=== PATIENT | male | born 1970 | race African-American/Black ===

== ENCOUNTER 2018-06-11 23:30 | Emergency (ER) | payer MEDICAID ==
[~2018-06-11] VITALS: Ht 170.2 cm; Wt 74.1 kg
[~2018-06-11 23:30] MED LIST: BENZ1TAB10 PO; BUSP15 PO; HYDR25TA PO; LISI-662 PO; LITH300C3 PO; LURA40 PO; OLAN10TA3 PO; PHENY100 PO
[2018-06-11] MEDS ORDERED: CLON.3 PO (23:42)
[2018-06-11 23:48] LABS: BASOPHILS % (AUTO) 1.1 % (0.0-2.0); EOSINOPHILS % (AUTO) 2.4 % (1.0-6.0); HEMATOCRIT 42.9 % (41-53); HEMOGLOBIN 14.6 g/dL (13.5-17.5); LYMPHOCYTES # (AUTO) 1.5 K/uL (1.0-4.8); LYMPHOCYTES % (AUTO) 28.2 % (22.0-44.0); MEAN CORPUSCULAR HEMOGLOBIN 30.8 pg (26.0-34.0); MEAN CORPUSCULAR HGB CONC 33.9 G/dL (31.0-37.0); MEAN CORPUSCULAR VOLUME 91 fL (80-100); MONOCYTES # (AUTO) 0.3 K/uL (0.1-1.0); MONOCYTES % (AUTO) 6.3 % (2.0-9.0); NEUTROPHILS # (AUTO) 3.3 K/uL (1.8-7.7); PLATELET COUNT (AUTO) 233 K/uL (150-450); RED BLOOD CELL COUNT(AUTO) 4.73 MIL/uL (4.50-5.90); RED CELL DISTRIBUTION WIDTH 15.1 % (11.5-14.5)
[2018-06-11 23:58] LABS: ANION GAP 8 mmol/L (8-16); CALCIUM, TOTAL 9.5 mg/dL (8.8-10.5); CARBON DIOXIDE 29 mmol/L (22-29); CHLORIDE 101 mmol/L (98-107); CREATININE 1.12 mg/dL (0.60-1.30); GLOMERULAR FILTR. RATE CALC > 60 mL/min (>60); GLUCOSE,RANDOM 123 mg/dL (70-110); SODIUM SERUM 138 mmol/L (136-145); UREA NITROGEN, BLOOD 8 mg/dL (7-18)
[2018-06-12 00:05] LABS: ALANINE AMINOTRANSFERASE 16 U/L (12-78); ALBUMIN 4.2 g/dL (3.4-5.0); ALKALINE PHOSPHATASE 75 U/L (46-116); ASPARTATE AMINOTRANSFERASE 17 U/L (15-37); BILIRUBIN,TOTAL 0.3 mg/dL (0.1-1.0); TOTAL PROTEIN, SERUM 8.2 g/dL (6.4-8.2)
[2018-06-12 00:08] LABS: PHENYTOIN (DILANTIN) < 0.5 mcg/mL (10.0-20.0)
[2018-06-12 00:17] LABS: LITHIUM < 0.20 mmol/L (0.60-1.20)
[2018-06-12] MEDS: HALOPERIDOL 5 MG TABLET PO ONE (00:32)
[2018-06-12] MEDS: LORazepam 2 MG TABLET PO ONE (00:32)
[2018-06-12] MEDS: DiphenhydrAMINE HCL 25 MG CAPSULE PO ONE (00:35)
[2018-06-12 00:58] LABS: AMPHET/METH SCREEN,URINE POSITIVE (NEGATIVE); BARBITURATE SCREEN, URINE NEGATIVE (NEGATIVE); BENZODIAZEPINES SCREEN,URINE NEGATIVE (NEGATIVE); CANNABINOID SCREEN,URINE POSITIVE (NEGATIVE); COCAINE SCREEN,URINE NEGATIVE (NEGATIVE); METHADONE SCREEN, URINE NEGATIVE (NEGATIVE); OPIATE SCREEN,URINE NEGATIVE (NEGATIVE)
[2018-06-12 00:59] LABS: PHENCYCLIDINE SCREEN,URINE NEGATIVE (NEGATIVE)
[2018-06-12] MEDS: CloNIDine HCL 0.2 MG TABLET PO ONE (01:38)
[2018-06-12 02:59] VITALS: BP 163/135
== END 2018-06-12 03:04 | disposition home or self-care (01) ==
LOC: EMS 23:31
DX: F41.9 Anxiety disorder, unspecified (principal); F31.9 Bipolar disorder, unspecified; I10 Essential (primary) hypertension; F20.9 Schizophrenia, unspecified; F17.210 Nicotine dependence, cigarettes, uncomplicated; F12.90 Cannabis use, unspecified, uncomplicated; F15.90 Other stimulant use, unspecified, uncomplicated; Z79.4 Long term (current) use of insulin; Z88.8 Allergy status to other drugs, medicaments and biological substances
CPT/HCPCS: 36415; 80053; 80178; 80185; 80307; 84484; 85025; 99284; G0480

== ENCOUNTER 2018-07-31 23:19 | Emergency (ER) | payer MEDICAID ==
[~2018-07-31] VITALS: Ht 170.2 cm; Wt 86.0 kg
[~2018-07-31 23:19] MED LIST changes: +CLON.3 PO
[2018-07-31 23:57] LABS: EOSINOPHILS % (AUTO) 1.1 % (1.0-6.0); HEMATOCRIT 45.3 % (41-53); HEMOGLOBIN 15.3 g/dL (13.5-17.5); LYMPHOCYTES # (AUTO) 2.1 K/uL (1.0-4.8); LYMPHOCYTES % (AUTO) 31.1 % (22.0-44.0); MEAN CORPUSCULAR HEMOGLOBIN 31.3 pg (26.0-34.0); MEAN CORPUSCULAR HGB CONC 33.9 G/dL (31.0-37.0); MEAN CORPUSCULAR VOLUME 92 fL (80-100); MONOCYTES # (AUTO) 0.6 K/uL (0.1-1.0); MONOCYTES % (AUTO) 8.9 % (2.0-9.0); NEUTROPHILS % (AUTO) 57.9 % (40.0-70.0); PLATELET COUNT (AUTO) 217 K/uL (150-450); RED BLOOD CELL COUNT(AUTO) 4.91 MIL/uL (4.50-5.90); RED CELL DISTRIBUTION WIDTH 15.5 % (11.5-14.5)
[2018-08-01] MEDS ORDERED: PALI39DI IM (00:02)
[2018-08-01 00:10] LABS: ANION GAP 10 mmol/L (8-16); CARBON DIOXIDE 28 mmol/L (22-29); CHLORIDE 99 mmol/L (98-107); CREATININE 1.13 mg/dL (0.60-1.30); GLOMERULAR FILTR. RATE CALC > 60 mL/min (>60); GLUCOSE,RANDOM 111 mg/dL (70-110); POTASSIUM 4.2 mmol/L (3.5-5.1); SODIUM SERUM 137 mmol/L (136-145); UREA NITROGEN, BLOOD 11 mg/dL (7-18)
[2018-08-01 00:16] LABS: ALANINE AMINOTRANSFERASE 16 U/L (12-78); ALBUMIN 4.5 g/dL (3.4-5.0); ALKALINE PHOSPHATASE 82 U/L (46-116); ASPARTATE AMINOTRANSFERASE 28 U/L (15-37); BILIRUBIN,TOTAL 0.6 mg/dL (0.1-1.0); TOTAL PROTEIN, SERUM 8.7 g/dL (6.4-8.2)
[2018-08-01 00:22] LABS: AMPHET/METH SCREEN,URINE POSITIVE (NEGATIVE); BARBITURATE SCREEN, URINE NEGATIVE (NEGATIVE); BENZODIAZEPINES SCREEN,URINE NEGATIVE (NEGATIVE); CANNABINOID SCREEN,URINE NEGATIVE (NEGATIVE); COCAINE SCREEN,URINE NEGATIVE (NEGATIVE); METHADONE SCREEN, URINE NEGATIVE (NEGATIVE); OPIATE SCREEN,URINE NEGATIVE (NEGATIVE); PHENCYCLIDINE SCREEN,URINE NEGATIVE (NEGATIVE)
[2018-08-01] MEDS ORDERED: LORazepam 2 MG TABLET PO ONE (00:45)
[2018-08-01] MEDS ORDERED: HALOPERIDOL 5 MG TABLET PO ONE (00:45)
[2018-08-01] MEDS ORDERED: CloNIDine HCL 0.2 MG TABLET PO ONE (01:30)
[2018-08-01] MEDS ORDERED: AmLODIPine BESYLATE 5 MG TABLET PO ONE (02:30)
[2018-08-01 02:53] VITALS: BP 183/87
== END 2018-08-01 03:09 | disposition home or self-care (01) ==
LOC: EMS 23:20
DX: F20.9 Schizophrenia, unspecified (principal); F31.9 Bipolar disorder, unspecified; F41.9 Anxiety disorder, unspecified; I10 Essential (primary) hypertension; F15.90 Other stimulant use, unspecified, uncomplicated; F17.210 Nicotine dependence, cigarettes, uncomplicated; Z88.8 Allergy status to other drugs, medicaments and biological substances
CPT/HCPCS: 36415; 80053; 80307; 85025; 99285; G0480

== ENCOUNTER 2020-01-20 20:32 | Emergency (ER) | payer SELFPAY ==
[~2020-01-20] VITALS: Ht 170.2 cm; Wt 90.5 kg
[~2020-01-20 20:32] MED LIST changes: -BENZ1TAB10 PO; -CLON.3 PO; -HYDR25TA PO; -LISI-662 PO; -LITH300C3 PO; -LURA40 PO; +PALI39DI IM
[2020-01-20 20:49] VITALS: BP 166/90
== END 2020-01-20 21:09 | disposition left against medical advice (07) ==
LOC: EMS 20:33
DX: F20.9 Schizophrenia, unspecified (principal); F31.9 Bipolar disorder, unspecified; I10 Essential (primary) hypertension; F19.90 Other psychoactive substance use, unspecified, uncomplicated; Z88.0 Allergy status to penicillin

== ENCOUNTER 2020-01-20 23:55 | Inpatient (IN) | payer SELFPAY ==
[~2020-01-20] VITALS: Ht 170.2 cm; Wt 85.4 kg
[2020-01-21] MEDS ORDERED: LORazepam 2 MG TABLET PO ONE (01:00)
[2020-01-21] MEDS ORDERED: HALOPERIDOL LACTATE 5 MG/ML VIAL IM ONE (01:15)
[2020-01-21] MEDS ORDERED: LORazepam 2 MG/ML VIAL IM ONE (01:15)
[2020-01-21] MEDS ORDERED: DiphenhydrAMINE HCL 50 MG/ML VIAL IM ONE (01:15)
[2020-01-21] MEDS ORDERED: ZOLPIDEM TARTRATE 10 MG TABLET PO PRN (02:00)
[2020-01-21] MEDS ORDERED: INFLUENZA VIRUS VACCINE QVS 2019-20 (3YR+)/PF 60 MCG/0.5 ML SYRINGE IM ONE (06:00)
[2020-01-21] MEDS ORDERED: PNEUMOCOCCAL VACCINE POLYVALENT 0.5 ML VIAL [PPSV23] IM ONE (06:00)
[2020-01-21 09:56] VITALS: BP 137/98
[2020-01-21 16:00] VITALS: BP 116/72
[2020-01-21] MEDS: PHENYTOIN SODIUM 100 MG ER CAPSULE PO SCH (16:58)
[2020-01-21] MEDS: OLANZapine 7.5 MG TABLET PO SCH (20:25)
[2020-01-22 08:04] LABS: CHOL/HDL RATIO 2.9 (4.2-7.3)
[2020-01-22] MEDS: BusPIRone HCL 15 MG TABLET PO SCH ×2 (08:37→17:00)
[2020-01-22] MEDS: PHENYTOIN SODIUM 100 MG ER CAPSULE PO SCH (08:37)
[2020-01-22] MEDS: DIVALPROEX SODIUM 500 MG DR TABLET PO SCH ×2 (08:37→17:00)
[2020-01-22 08:38] VITALS: BP 145/97
[2020-01-22] MEDS ORDERED: HALOPERIDOL LACTATE 5 MG/ML VIAL ONE (14:35)
[2020-01-22] MEDS ORDERED: DiphenhydrAMINE HCL 50 MG/ML VIAL ONE (14:35)
[2020-01-22] MEDS: HALOPERIDOL 5 MG TABLET PO PRN (14:40)
[2020-01-22] MEDS: LORazepam 2 MG TABLET PO PRN (14:40)
[2020-01-22] MEDS ORDERED: HALOPERIDOL LACTATE 5 MG/ML VIAL IM ONE (14:45)
[2020-01-22] MEDS ORDERED: LORazepam 2 MG/ML VIAL IM ONE (14:45)
[2020-01-22] MEDS ORDERED: DiphenhydrAMINE HCL 50 MG/ML VIAL IM ONE (14:45)
[2020-01-22 16:22] VITALS: BP 136/91
[2020-01-22] MEDS: OLANZapine 7.5 MG TABLET PO SCH (20:19)
[2020-01-23] MEDS: DIVALPROEX SODIUM 500 MG DR TABLET PO SCH ×2 (08:07→16:15)
[2020-01-23] MEDS: BusPIRone HCL 15 MG TABLET PO SCH ×2 (08:07→16:15)
[2020-01-23] MEDS: PHENYTOIN SODIUM 100 MG ER CAPSULE PO SCH (08:08)
[2020-01-23] MEDS: LORazepam 2 MG TABLET PO PRN (11:12)
[2020-01-23] MEDS: HALOPERIDOL 5 MG TABLET PO PRN (11:12)
[2020-01-23] MEDS ORDERED: HALOPERIDOL LACTATE 5 MG/ML VIAL ONE (11:33)
[2020-01-23] MEDS ORDERED: LORazepam 2 MG/ML VIAL ONE (11:33)
[2020-01-23] MEDS ORDERED: DiphenhydrAMINE HCL 50 MG/ML VIAL ONE (11:34)
[2020-01-23] MEDS ORDERED: HALOPERIDOL LACTATE 5 MG/ML VIAL IM ONE ×3 (11:45→17:45)
[2020-01-23] MEDS ORDERED: DiphenhydrAMINE HCL 50 MG/ML VIAL IM ONE (11:45)
[2020-01-23] MEDS ORDERED: LORazepam 2 MG/ML VIAL IM ONE ×3 (11:45→17:45)
[2020-01-23] MEDS ORDERED: OLAN7.5T2 PO (11:59)
[2020-01-23] MEDS: OLANZapine 7.5 MG TABLET PO SCH (21:29)
[2020-01-24] MEDS: LORazepam 2 MG TABLET PO PRN (00:04)
[2020-01-24] MEDS: PHENYTOIN SODIUM 100 MG ER CAPSULE PO SCH (09:00)
[2020-01-24] MEDS ORDERED: LORazepam 2 MG/ML VIAL IM ONE ×4 (09:15→18:15)
[2020-01-24] MEDS ORDERED: LORazepam 2 MG/ML VIAL ONE (09:15)
[2020-01-24] MEDS ORDERED: HALOPERIDOL LACTATE 5 MG/ML VIAL ONE (09:15)
[2020-01-24] MEDS ORDERED: DiphenhydrAMINE HCL 50 MG/ML VIAL IM ONE ×4 (09:15→18:15)
[2020-01-24] MEDS ORDERED: DiphenhydrAMINE HCL 50 MG/ML VIAL ONE (09:15)
[2020-01-24] MEDS ORDERED: HALOPERIDOL LACTATE 5 MG/ML VIAL IM ONE ×4 (09:15→18:15)
[2020-01-24] MEDS: BusPIRone HCL 15 MG TABLET PO SCH ×2 (13:55→18:27)
[2020-01-24] MEDS: DIVALPROEX SODIUM 500 MG DR TABLET PO SCH ×2 (13:55→17:00)
[2020-01-24] MEDS: OLANZapine 7.5 MG TABLET PO SCH (20:42)
[2020-01-25] MEDS: BusPIRone HCL 15 MG TABLET PO SCH ×2 (08:23→16:20)
[2020-01-25] MEDS: LORazepam 2 MG TABLET PO PRN ×2 (08:27→14:24)
[2020-01-25] MEDS: DIVALPROEX SODIUM 500 MG DR TABLET PO SCH ×2 (08:28→16:20)
[2020-01-25] MEDS: PHENYTOIN SODIUM 100 MG ER CAPSULE PO SCH (08:28)
[2020-01-25] MEDS ORDERED: VALP250C48 PO (16:20)
== END 2020-01-25 18:15 | disposition home or self-care (01) | DRG 885 ==
LOC: EMS 23:56 → 3EC 01-21 03:36
PROVIDERS: ADMIT Psychiatry & Neurology Psychiatry; ATTEND Psychiatry & Neurology Psychiatry
DX: F20.0 Paranoid schizophrenia (principal); I10 Essential (primary) hypertension; F17.210 Nicotine dependence, cigarettes, uncomplicated; G40.909 Epilepsy, unspecified, not intractable, without status epilepticus; J44.9 Chronic obstructive pulmonary disease, unspecified; G47.00 Insomnia, unspecified; K59.00 Constipation, unspecified; Z88.8 Allergy status to other drugs, medicaments and biological substances
CPT/HCPCS: 99291; J1200; J1630; J2060

== ENCOUNTER 2020-02-05 00:50 | Emergency (ER) | payer SELFPAY ==
[~2020-02-05] VITALS: Ht 170.2 cm; Wt 84.1 kg
[~2020-02-05 00:50] MED LIST changes: -OLAN10TA3 PO; +OLAN7.5T2 PO; -PALI39DI IM; +VALP250C48 PO
[2020-02-05 00:53] VITALS: BP 195/118
[2020-02-05] MEDS ORDERED: BUSP15 PO (01:22)
[2020-02-05] MEDS ORDERED: OLAN10TA3 PO (01:22)
== END 2020-02-05 03:15 | disposition left against medical advice (07) ==
LOC: EMS 00:52
DX: Z00.8 Encounter for other general examination (principal); Z53.21 Procedure and treatment not carried out due to patient leaving prior to being seen by health care provider

== ENCOUNTER 2021-04-30 23:12 | Emergency (ER) | payer MEDICAID ==
[~2021-04-30 23:12] MED LIST changes: +OLAN10TA74 PO; -OLAN7.5T2 PO; -PHENY100 PO; -VALP250C48 PO
== END 2021-05-01 00:06 | disposition left against medical advice (07) ==
LOC: EMS 23:13
DX: Z00.00 Encounter for general adult medical examination without abnormal findings (principal); Z53.21 Procedure and treatment not carried out due to patient leaving prior to being seen by health care provider

== ENCOUNTER 2021-05-01 00:25 | Inpatient (IN) | payer MEDICAID ==
[~2021-05-01] VITALS: Ht 172.7 cm; Wt 103.1 kg
[2021-05-01] MEDS ORDERED: HALOPERIDOL LACTATE 5 MG/ML VIAL IM ONE (00:45)
[2021-05-01] MEDS ORDERED: LORazepam 2 MG/ML VIAL IM ONE (00:45)
[2021-05-01] MEDS ORDERED: DiphenhydrAMINE HCL 50 MG/ML VIAL IM ONE (00:45)
[2021-05-01 01:16] LABS: BASOPHILS % (AUTO) 0.7 % (0.0-2.0); EOSINOPHILS % (AUTO) 0.5 % (1.0-6.0); HEMATOCRIT 35.6 % (41-53); HEMOGLOBIN 11.7 g/dL (13.5-17.5); LYMPHOCYTES # (AUTO) 1.6 K/uL (1.0-4.8); LYMPHOCYTES % (AUTO) 17.7 % (22.0-44.0); MEAN CORPUSCULAR HEMOGLOBIN 30.5 pg (26.0-34.0); MEAN CORPUSCULAR VOLUME 93 fL (80-100); MONOCYTES # (AUTO) 0.9 K/uL (0.1-1.0); MONOCYTES % (AUTO) 10.4 % (2.0-9.0); NEUTROPHILS # (AUTO) 6.4 K/uL (1.8-7.7); NEUTROPHILS % (AUTO) 70.7 % (40.0-70.0); PLATELET COUNT (AUTO) 241 K/uL (150-450); RED BLOOD CELL COUNT(AUTO) 3.85 MIL/uL (4.50-5.90); RED CELL DISTRIBUTION WIDTH 14.7 % (11.5-14.5)
[2021-05-01 01:26] LABS: ANION GAP 13 mmol/L (8-16); CARBON DIOXIDE 25 mmol/L (22-29); CHLORIDE 101 mmol/L (98-107); CREATININE 1.07 mg/dL (0.60-1.30); GLOMERULAR FILTR. RATE CALC > 60 mL/min (>60); GLUCOSE,RANDOM 106 mg/dL (70-110); POTASSIUM 3.4 mmol/L (3.5-5.1); SODIUM SERUM 139 mmol/L (136-145); UREA NITROGEN, BLOOD 13 mg/dL (7-18)
[2021-05-01 01:32] LABS: ALANINE AMINOTRANSFERASE 50 U/L (12-78); ALBUMIN 3.7 g/dL (3.4-5.0); ALKALINE PHOSPHATASE 72 U/L (46-116); ASPARTATE AMINOTRANSFERASE 57 U/L (15-37); BILIRUBIN,TOTAL 0.5 mg/dL (0.1-1.0); TOTAL PROTEIN, SERUM 7.5 g/dL (6.4-8.2); VALPROIC ACID < 3 mcg/mL (50-100)
[2021-05-01 01:42] LABS: COVID AG,FIA SOURCE NASOPHARYNGEAL
[2021-05-01 02:45] LABS: APPEARANCE,URINE CLEAR (CLEAR); GLUCOSE, URINE (UA) NEGATIVE (NEGATIVE); KETONES,URINE 40 mg/dL (NEGATIVE); LEUKOCYTE ESTERASE ,URINE NEGATIVE (NEGATIVE); NITRATE,URINE NEGATIVE (NEGATIVE); OCCULT BLOOD,URINE NEGATIVE (NEGATIVE); PROTEIN,URINE POS 1+ (NEGATIVE); UROBILINOGEN,URINE 0.2 mg/dL (<=1.0)
[2021-05-01 02:47] LABS: BILIRUBIN,URINE PRELIM. POSITIVE (NEGATIVE)
[2021-05-01 02:49] LABS: BACTERIA,URINE Rare /HPF (None Seen); RBC,URINE 0-2 /HPF (0-2); WBC,URINE 0-2 /HPF (0-5)
[2021-05-01 02:50] LABS: SQUAMOUS EPITHELIAL CELL,UR Rare /LPF (None Seen)
[2021-05-01 02:51] LABS: AMPHET/METH SCREEN,URINE POSITIVE (NEGATIVE); BARBITURATE SCREEN, URINE NEGATIVE (NEGATIVE); BENZODIAZEPINES SCREEN,URINE NEGATIVE (NEGATIVE); CANNABINOID SCREEN,URINE POSITIVE (NEGATIVE); COCAINE SCREEN,URINE NEGATIVE (NEGATIVE); METHADONE SCREEN, URINE NEGATIVE (NEGATIVE); OPIATE SCREEN,URINE NEGATIVE (NEGATIVE)
[2021-05-01 02:52] LABS: PHENCYCLIDINE SCREEN,URINE NEGATIVE (NEGATIVE)
[2021-05-01 11:04] VITALS: BP 158/88
[2021-05-01] MEDS: HYDROCHLOROTHIAZIDE 25 MG TABLET PO SCH (12:58)
[2021-05-01] MEDS: LISINOPRIL 20 MG TABLET PO SCH (12:58)
[2021-05-01 13:18] LABS: GLUCOMETER DEV NAME(LOC) 3E.C; GLUCOSE,POINT OF CARE 97 MG/DL (70-110)
[2021-05-01 16:06] VITALS: BP 120/74
[2021-05-01] MEDS: LevETIRAcetam 500 MG TABLET PO SCH (16:18)
[2021-05-01] MEDS: METOPROLOL SUCCINATE 25 MG ER TABLET PO SCH (16:18)
[2021-05-01] MEDS: OLANZapine 10 MG TABLET PO SCH (20:16)
[2021-05-01] MEDS: BusPIRone HCL 15 MG TABLET PO SCH (20:16)
[2021-05-02 07:23] LABS: CHOL/HDL RATIO 3.7 (4.2-7.3)
[2021-05-02 08:42] VITALS: BP 108/69
[2021-05-02] MEDS: METOPROLOL SUCCINATE 25 MG ER TABLET PO SCH ×2 (10:30→16:37)
[2021-05-02] MEDS: BusPIRone HCL 15 MG TABLET PO SCH ×2 (10:31→16:37)
[2021-05-02] MEDS: HYDROCHLOROTHIAZIDE 25 MG TABLET PO SCH (10:31)
[2021-05-02] MEDS: LISINOPRIL 20 MG TABLET PO SCH (10:32)
[2021-05-02] MEDS: LevETIRAcetam 500 MG TABLET PO SCH ×2 (10:32→16:37)
[2021-05-02 16:36] VITALS: BP 104/69
[2021-05-02] MEDS: OLANZapine 10 MG TABLET PO SCH (20:17)
[2021-05-03 08:36] VITALS: BP 98/58
[2021-05-03] MEDS: METOPROLOL SUCCINATE 25 MG ER TABLET PO SCH ×2 (10:04→16:54)
[2021-05-03] MEDS: LevETIRAcetam 500 MG TABLET PO SCH ×2 (10:06→16:53)
[2021-05-03] MEDS: LISINOPRIL 20 MG TABLET PO SCH (10:06)
[2021-05-03] MEDS: BusPIRone HCL 15 MG TABLET PO SCH ×2 (10:06→16:54)
[2021-05-03] MEDS: HYDROCHLOROTHIAZIDE 25 MG TABLET PO SCH (10:06)
[2021-05-03] MEDS: LORazepam 2 MG TABLET PO PRN (15:00)
[2021-05-03] MEDS: HALOPERIDOL 5 MG TABLET PO PRN (15:01)
[2021-05-03 16:19] VITALS: BP 137/98
[2021-05-03] MEDS: OLANZapine 10 MG TABLET PO SCH (20:47)
[2021-05-04 08:00] VITALS: BP 104/57
[2021-05-04] MEDS: HYDROCHLOROTHIAZIDE 25 MG TABLET PO SCH (08:29)
[2021-05-04] MEDS: BusPIRone HCL 15 MG TABLET PO SCH ×2 (08:30→16:07)
[2021-05-04] MEDS: LevETIRAcetam 500 MG TABLET PO SCH ×2 (08:30→16:07)
[2021-05-04] MEDS: LISINOPRIL 20 MG TABLET PO SCH (08:30)
[2021-05-04] MEDS: METOPROLOL SUCCINATE 25 MG ER TABLET PO SCH ×2 (08:31→16:10)
[2021-05-04] MEDS: HALOPERIDOL 5 MG TABLET PO PRN (15:47)
[2021-05-04] MEDS: LORazepam 2 MG TABLET PO PRN (15:47)
[2021-05-04 16:15] VITALS: BP 117/81
[2021-05-04] MEDS: OLANZapine 10 MG TABLET PO SCH (20:18)
[2021-05-05] MEDS: HALOPERIDOL 5 MG TABLET PO PRN ×2 (02:25→11:37)
[2021-05-05] MEDS: ZOLPIDEM TARTRATE 10 MG TABLET PO PRN ×2 (02:25→23:32)
[2021-05-05 08:00] VITALS: BP 106/68
[2021-05-05] MEDS: METOPROLOL SUCCINATE 25 MG ER TABLET PO SCH ×2 (09:13→16:01)
[2021-05-05] MEDS: HYDROCHLOROTHIAZIDE 25 MG TABLET PO SCH (09:24)
[2021-05-05] MEDS: LISINOPRIL 20 MG TABLET PO SCH (09:24)
[2021-05-05] MEDS: BusPIRone HCL 15 MG TABLET PO SCH ×2 (09:24→16:01)
[2021-05-05] MEDS: LevETIRAcetam 500 MG TABLET PO SCH ×2 (09:24→16:01)
[2021-05-05] MEDS: LORazepam 2 MG TABLET PO PRN ×3 (11:37→23:32)
[2021-05-05] MEDS ORDERED: HALOPERIDOL LACTATE 5 MG/ML VIAL ONE (15:38)
[2021-05-05] MEDS ORDERED: LORazepam 2 MG/ML VIAL ONE (15:38)
[2021-05-05] MEDS ORDERED: LORazepam 2 MG/ML VIAL IM ONE ×2 (15:45→21:00)
[2021-05-05] MEDS ORDERED: DiphenhydrAMINE HCL 50 MG/ML VIAL IM ONE ×2 (15:45→21:00)
[2021-05-05] MEDS ORDERED: HALOPERIDOL LACTATE 5 MG/ML VIAL IM ONE (15:45)
[2021-05-05 16:00] VITALS: BP 111/73
[2021-05-05] MEDS: OLANZapine 10 MG TABLET PO SCH (20:38)
[2021-05-05] MEDS ORDERED: ChlorproMAZINE HCL 50 MG/2 ML AMP ONE (20:55)
[2021-05-05] MEDS ORDERED: ChlorproMAZINE HCL 50 MG/2 ML AMP IM ONE (21:00)
[2021-05-06] MEDS: HALOPERIDOL 5 MG TABLET PO PRN ×3 (00:22→16:55)
[2021-05-06] MEDS ORDERED: LORazepam 2 MG/ML VIAL IM ONE ×2 (06:15→17:15)
[2021-05-06] MEDS ORDERED: DiphenhydrAMINE HCL 50 MG/ML VIAL IM ONE ×2 (06:15→17:15)
[2021-05-06] MEDS ORDERED: HALOPERIDOL LACTATE 5 MG/ML VIAL IM ONE ×2 (06:15→17:15)
[2021-05-06] MEDS ORDERED: HALOPERIDOL LACTATE 5 MG/ML VIAL ONE (06:19)
[2021-05-06] MEDS: BusPIRone HCL 15 MG TABLET PO SCH ×2 (08:07→16:56)
[2021-05-06] MEDS: LevETIRAcetam 500 MG TABLET PO SCH ×2 (08:07→16:56)
[2021-05-06] MEDS: LISINOPRIL 20 MG TABLET PO SCH (08:07)
[2021-05-06] MEDS: HYDROCHLOROTHIAZIDE 25 MG TABLET PO SCH (08:07)
[2021-05-06] MEDS: METOPROLOL SUCCINATE 25 MG ER TABLET PO SCH ×2 (08:07→16:56)
[2021-05-06] MEDS: LORazepam 2 MG TABLET PO PRN ×2 (11:44→16:55)
[2021-05-06] MEDS: OLANZapine 10 MG TABLET PO SCH (20:27)
[2021-05-07] MEDS: BusPIRone HCL 15 MG TABLET PO SCH ×2 (08:25→17:46)
[2021-05-07] MEDS: LevETIRAcetam 500 MG TABLET PO SCH ×2 (08:25→17:46)
[2021-05-07] MEDS: LISINOPRIL 20 MG TABLET PO SCH (08:25)
[2021-05-07] MEDS: HYDROCHLOROTHIAZIDE 25 MG TABLET PO SCH (08:25)
[2021-05-07] MEDS: HALOPERIDOL 5 MG TABLET PO PRN ×2 (08:25→19:09)
[2021-05-07] MEDS: LORazepam 2 MG TABLET PO PRN ×2 (08:25→19:18)
[2021-05-07] MEDS: METOPROLOL SUCCINATE 25 MG ER TABLET PO SCH ×2 (08:26→17:46)
[2021-05-07 09:06] VITALS: BP 100/72
[2021-05-07] MEDS: DIVALPROEX SODIUM 500 MG DR TABLET PO SCH ×2 (09:48→17:46)
[2021-05-07] MEDS ORDERED: LORazepam 2 MG/ML VIAL ONE (15:19)
[2021-05-07] MEDS ORDERED: ChlorproMAZINE HCL 50 MG/2 ML AMP ONE (15:19)
[2021-05-07] MEDS ORDERED: DiphenhydrAMINE HCL 50 MG/ML VIAL ONE (15:19)
[2021-05-07] MEDS ORDERED: LORazepam 2 MG/ML VIAL IM ONE ×2 (15:30→23:45)
[2021-05-07] MEDS ORDERED: ChlorproMAZINE HCL 50 MG/2 ML AMP IM ONE ×2 (15:30→23:45)
[2021-05-07] MEDS ORDERED: DiphenhydrAMINE HCL 50 MG/ML VIAL IM ONE ×2 (15:30→23:45)
[2021-05-07] MEDS: ZOLPIDEM TARTRATE 10 MG TABLET PO PRN ×2 (19:25→20:34)
[2021-05-07] MEDS: OLANZapine 10 MG TABLET PO SCH (20:09)
[2021-05-08] MEDS: LevETIRAcetam 500 MG TABLET PO SCH ×2 (08:44→16:50)
[2021-05-08] MEDS: LORazepam 2 MG TABLET PO PRN (08:44)
[2021-05-08] MEDS: METOPROLOL SUCCINATE 25 MG ER TABLET PO SCH ×2 (08:44→16:50)
[2021-05-08] MEDS: DIVALPROEX SODIUM 500 MG DR TABLET PO SCH ×2 (08:44→16:50)
[2021-05-08] MEDS: HALOPERIDOL 5 MG TABLET PO PRN (08:44)
[2021-05-08] MEDS: BusPIRone HCL 15 MG TABLET PO SCH ×2 (08:45→16:50)
[2021-05-08] MEDS: HYDROCHLOROTHIAZIDE 25 MG TABLET PO SCH (08:45)
[2021-05-08] MEDS: LISINOPRIL 20 MG TABLET PO SCH (08:45)
[2021-05-08] MEDS: OLANZapine 10 MG TABLET PO SCH (21:43)
[2021-05-09] MEDS: HALOPERIDOL 5 MG TABLET PO PRN ×4 (00:03→18:51)
[2021-05-09] MEDS: LORazepam 2 MG TABLET PO PRN ×4 (00:04→18:51)
[2021-05-09] MEDS: ZOLPIDEM TARTRATE 10 MG TABLET PO PRN ×2 (01:34→20:18)
[2021-05-09] MEDS: LevETIRAcetam 500 MG TABLET PO SCH ×2 (07:23→18:49)
[2021-05-09] MEDS: MULTIVITAMINS WITH MINERALS, THERAPEUTIC TABLET PO SCH (07:23)
[2021-05-09] MEDS: LISINOPRIL 20 MG TABLET PO SCH (07:24)
[2021-05-09] MEDS: HYDROCHLOROTHIAZIDE 25 MG TABLET PO SCH (07:24)
[2021-05-09] MEDS: BusPIRone HCL 15 MG TABLET PO SCH ×2 (07:24→18:49)
[2021-05-09] MEDS: DIVALPROEX SODIUM 500 MG DR TABLET PO SCH ×2 (07:24→18:49)
[2021-05-09] MEDS: METOPROLOL SUCCINATE 25 MG ER TABLET PO SCH ×2 (07:24→18:49)
[2021-05-09 08:20] VITALS: BP 104/67
[2021-05-09] MEDS: OLANZapine 10 MG TABLET PO SCH (20:20)
[2021-05-10] MEDS: LORazepam 2 MG TABLET PO PRN ×2 (00:58→06:52)
[2021-05-10] MEDS: HALOPERIDOL 5 MG TABLET PO PRN ×2 (00:58→06:52)
[2021-05-10] MEDS: LevETIRAcetam 500 MG TABLET PO SCH ×2 (07:43→17:00)
[2021-05-10] MEDS: METOPROLOL SUCCINATE 25 MG ER TABLET PO SCH ×2 (07:43→17:00)
[2021-05-10] MEDS: MULTIVITAMINS WITH MINERALS, THERAPEUTIC TABLET PO SCH (07:43)
[2021-05-10] MEDS: LISINOPRIL 20 MG TABLET PO SCH (07:44)
[2021-05-10] MEDS: HYDROCHLOROTHIAZIDE 25 MG TABLET PO SCH (07:44)
[2021-05-10] MEDS: DIVALPROEX SODIUM 500 MG DR TABLET PO SCH ×2 (07:44→17:00)
[2021-05-10] MEDS: BusPIRone HCL 15 MG TABLET PO SCH ×2 (07:44→17:00)
[2021-05-10] MEDS ORDERED: LORazepam 2 MG/ML VIAL ONE (15:48)
[2021-05-10] MEDS ORDERED: ChlorproMAZINE HCL 50 MG/2 ML AMP ONE (15:49)
[2021-05-10] MEDS ORDERED: DiphenhydrAMINE HCL 50 MG/ML VIAL ONE (15:49)
[2021-05-10] MEDS ORDERED: ChlorproMAZINE HCL 50 MG/2 ML AMP IM ONE (15:50)
[2021-05-10] MEDS ORDERED: DiphenhydrAMINE HCL 50 MG/ML VIAL IM ONE ×2 (15:50→23:15)
[2021-05-10] MEDS ORDERED: LORazepam 2 MG/ML VIAL IM ONE ×3 (15:50→23:15)
[2021-05-10 16:00] VITALS: BP 121/80
[2021-05-10] MEDS ORDERED: ZIPRASIDONE MESYLATE 20 MG/VIAL IM ONE ×3 (18:51→23:15)
[2021-05-10] MEDS: OLANZapine 10 MG TABLET PO SCH (21:00)
[2021-05-10] MEDS ORDERED: NICOTINE 14 MG/24 HOUR PATCH TD PRN (23:15)
[2021-05-11] MEDS: BusPIRone HCL 15 MG TABLET PO SCH ×2 (08:52→16:16)
[2021-05-11] MEDS: MULTIVITAMINS WITH MINERALS, THERAPEUTIC TABLET PO SCH (08:52)
[2021-05-11] MEDS: HALOPERIDOL 5 MG TABLET PO PRN ×3 (08:52→19:07)
[2021-05-11] MEDS: LISINOPRIL 20 MG TABLET PO SCH (08:52)
[2021-05-11] MEDS: LORazepam 2 MG TABLET PO PRN ×2 (08:53→14:50)
[2021-05-11] MEDS: HYDROCHLOROTHIAZIDE 25 MG TABLET PO SCH (08:53)
[2021-05-11] MEDS: DIVALPROEX SODIUM 500 MG DR TABLET PO SCH ×2 (08:55→16:16)
[2021-05-11] MEDS: METOPROLOL SUCCINATE 25 MG ER TABLET PO SCH ×2 (08:56→17:57)
[2021-05-11] MEDS: LevETIRAcetam 500 MG TABLET PO SCH ×2 (08:57→16:16)
[2021-05-11] MEDS ORDERED: ZIPRASIDONE MESYLATE 20 MG/VIAL IM ONE ×2 (16:31→17:00)
[2021-05-11] MEDS ORDERED: LORazepam 2 MG/ML VIAL ONE (16:32)
[2021-05-11] MEDS ORDERED: DiphenhydrAMINE HCL 50 MG/ML VIAL ONE (16:33)
[2021-05-11] MEDS ORDERED: LORazepam 2 MG/ML VIAL IM ONE (17:00)
[2021-05-11] MEDS ORDERED: DiphenhydrAMINE HCL 50 MG/ML VIAL IM ONE (17:00)
[2021-05-11] MEDS: OLANZapine 10 MG TABLET PO SCH (21:17)
[2021-05-12] MEDS: ZOLPIDEM TARTRATE 10 MG TABLET PO PRN (02:39)
[2021-05-12] MEDS: LORazepam 2 MG TABLET PO PRN ×3 (02:39→13:31)
[2021-05-12] MEDS: HALOPERIDOL 5 MG TABLET PO PRN ×3 (03:45→13:31)
[2021-05-12] MEDS: HYDROCHLOROTHIAZIDE 25 MG TABLET PO SCH (07:52)
[2021-05-12] MEDS: MULTIVITAMINS WITH MINERALS, THERAPEUTIC TABLET PO SCH (07:52)
[2021-05-12] MEDS: LevETIRAcetam 500 MG TABLET PO SCH ×2 (07:52→16:55)
[2021-05-12] MEDS: BusPIRone HCL 15 MG TABLET PO SCH ×2 (07:52→16:54)
[2021-05-12] MEDS: DIVALPROEX SODIUM 500 MG DR TABLET PO SCH ×2 (07:52→16:55)
[2021-05-12] MEDS: LISINOPRIL 20 MG TABLET PO SCH (07:52)
[2021-05-12] MEDS: METOPROLOL SUCCINATE 25 MG ER TABLET PO SCH ×2 (07:53→16:56)
[2021-05-12 08:11] VITALS: BP 143/95
[2021-05-12] MEDS: ZIPRASIDONE HCL 40 MG CAPSULE PO SCH (16:55)
[2021-05-12] MEDS: OLANZapine 10 MG TABLET PO SCH (20:07)
[2021-05-13] MEDS: LORazepam 2 MG TABLET PO PRN ×3 (02:13→21:13)
[2021-05-13] MEDS: HALOPERIDOL 5 MG TABLET PO PRN ×3 (02:13→21:13)
[2021-05-13] MEDS: ZOLPIDEM TARTRATE 10 MG TABLET PO PRN ×2 (02:13→20:17)
[2021-05-13] MEDS: ZIPRASIDONE HCL 40 MG CAPSULE PO SCH ×2 (06:36→18:42)
[2021-05-13] MEDS: LISINOPRIL 20 MG TABLET PO SCH (09:30)
[2021-05-13] MEDS: DIVALPROEX SODIUM 500 MG DR TABLET PO SCH ×2 (09:30→18:43)
[2021-05-13] MEDS: LevETIRAcetam 500 MG TABLET PO SCH ×2 (09:31→18:43)
[2021-05-13] MEDS: BusPIRone HCL 15 MG TABLET PO SCH ×2 (09:31→18:43)
[2021-05-13] MEDS: METOPROLOL SUCCINATE 25 MG ER TABLET PO SCH ×2 (09:31→18:43)
[2021-05-13] MEDS: MULTIVITAMINS WITH MINERALS, THERAPEUTIC TABLET PO SCH (09:31)
[2021-05-13] MEDS: HYDROCHLOROTHIAZIDE 25 MG TABLET PO SCH (09:31)
[2021-05-13] MEDS: OLANZapine 10 MG TABLET PO SCH (20:17)
[2021-05-14] MEDS: HALOPERIDOL 5 MG TABLET PO PRN ×3 (05:04→20:22)
[2021-05-14] MEDS: LORazepam 2 MG TABLET PO PRN ×3 (05:04→20:22)
[2021-05-14] MEDS: ZIPRASIDONE HCL 40 MG CAPSULE PO SCH ×2 (06:39→16:59)
[2021-05-14] MEDS: MULTIVITAMINS WITH MINERALS, THERAPEUTIC TABLET PO SCH (08:14)
[2021-05-14] MEDS: LISINOPRIL 20 MG TABLET PO SCH (08:14)
[2021-05-14] MEDS: LevETIRAcetam 500 MG TABLET PO SCH ×2 (08:14→16:20)
[2021-05-14] MEDS: METOPROLOL SUCCINATE 25 MG ER TABLET PO SCH ×2 (08:15→16:20)
[2021-05-14] MEDS: BusPIRone HCL 15 MG TABLET PO SCH ×2 (08:15→16:20)
[2021-05-14] MEDS: HYDROCHLOROTHIAZIDE 25 MG TABLET PO SCH (08:15)
[2021-05-14] MEDS: DIVALPROEX SODIUM 500 MG DR TABLET PO SCH ×2 (08:15→16:20)
[2021-05-14 08:18] VITALS: BP 146/90
[2021-05-14 16:09] VITALS: BP 144/88
[2021-05-14] MEDS: OLANZapine 10 MG TABLET PO SCH (20:17)
[2021-05-15] MEDS: ZOLPIDEM TARTRATE 10 MG TABLET PO PRN ×2 (00:02→23:53)
[2021-05-15] MEDS: LORazepam 2 MG TABLET PO PRN ×4 (00:46→23:53)
[2021-05-15] MEDS: HALOPERIDOL 5 MG TABLET PO PRN ×3 (00:46→09:40)
[2021-05-15] MEDS: ZIPRASIDONE HCL 40 MG CAPSULE PO SCH ×2 (06:50→17:01)
[2021-05-15 08:24] VITALS: BP 132/93
[2021-05-15] MEDS: HYDROCHLOROTHIAZIDE 25 MG TABLET PO SCH (09:40)
[2021-05-15] MEDS: BusPIRone HCL 15 MG TABLET PO SCH ×2 (09:40→17:01)
[2021-05-15] MEDS: LISINOPRIL 20 MG TABLET PO SCH (09:40)
[2021-05-15] MEDS: METOPROLOL SUCCINATE 25 MG ER TABLET PO SCH ×2 (09:40→17:01)
[2021-05-15] MEDS: DIVALPROEX SODIUM 500 MG DR TABLET PO SCH ×2 (09:40→17:01)
[2021-05-15] MEDS: LevETIRAcetam 500 MG TABLET PO SCH ×2 (09:40→17:01)
[2021-05-15] MEDS: MULTIVITAMINS WITH MINERALS, THERAPEUTIC TABLET PO SCH (09:42)
[2021-05-15] MEDS: OLANZapine 10 MG TABLET PO SCH (21:07)
[2021-05-16] MEDS: HALOPERIDOL 5 MG TABLET PO PRN ×2 (02:37→09:30)
[2021-05-16] MEDS: LORazepam 2 MG TABLET PO PRN ×2 (05:08→09:31)
[2021-05-16] MEDS: ZIPRASIDONE HCL 40 MG CAPSULE PO SCH (06:51)
[2021-05-16 08:41] VITALS: BP_SYST 115; BP_SYST 122; BP_DIAS 60; BP_DIAS 91
[2021-05-16] MEDS: MULTIVITAMINS WITH MINERALS, THERAPEUTIC TABLET PO SCH ×2 (09:26→09:33)
[2021-05-16] MEDS: ZIPRASIDONE HCL 60 MG CAPSULE PO SCH ×2 (09:27→21:05)
[2021-05-16] MEDS: HYDROCHLOROTHIAZIDE 25 MG TABLET PO SCH (09:30)
[2021-05-16] MEDS: LevETIRAcetam 500 MG TABLET PO SCH ×2 (09:30→21:05)
[2021-05-16] MEDS: LISINOPRIL 20 MG TABLET PO SCH (09:30)
[2021-05-16] MEDS: DIVALPROEX SODIUM 500 MG DR TABLET PO SCH ×2 (09:30→21:05)
[2021-05-16] MEDS: BusPIRone HCL 15 MG TABLET PO SCH ×2 (09:31→21:05)
[2021-05-16] MEDS: METOPROLOL SUCCINATE 25 MG ER TABLET PO SCH ×2 (09:31→17:00)
[2021-05-16] MEDS: OLANZapine 10 MG TABLET PO SCH (22:01)
[2021-05-16] MEDS: ZOLPIDEM TARTRATE 10 MG TABLET PO PRN (23:00)
[2021-05-17] MEDS: METOPROLOL SUCCINATE 25 MG ER TABLET PO SCH ×2 (07:53→18:52)
[2021-05-17] MEDS: ZIPRASIDONE HCL 60 MG CAPSULE PO SCH ×2 (07:53→18:52)
[2021-05-17] MEDS: HYDROCHLOROTHIAZIDE 25 MG TABLET PO SCH (07:54)
[2021-05-17] MEDS: DIVALPROEX SODIUM 500 MG DR TABLET PO SCH ×2 (07:54→18:52)
[2021-05-17] MEDS: LORazepam 2 MG TABLET PO PRN ×2 (07:54→18:56)
[2021-05-17] MEDS: BusPIRone HCL 15 MG TABLET PO SCH ×2 (07:54→18:52)
[2021-05-17] MEDS: LISINOPRIL 20 MG TABLET PO SCH (07:55)
[2021-05-17] MEDS: LevETIRAcetam 500 MG TABLET PO SCH ×2 (07:56→18:52)
[2021-05-17] MEDS: MULTIVITAMINS WITH MINERALS, THERAPEUTIC TABLET PO SCH (07:56)
[2021-05-17 08:49] VITALS: BP 125/81
[2021-05-17] MEDS: ZOLPIDEM TARTRATE 10 MG TABLET PO PRN (20:43)
[2021-05-17] MEDS: OLANZapine 10 MG TABLET PO SCH (20:43)
[2021-05-17] MEDS ORDERED: ACETAMINOPHEN 325 MG TABLET PO PRN (21:15)
[2021-05-17] MEDS ORDERED: IBUPROFEN 400 MG TABLET PO PRN ×2 (21:15)
[2021-05-18] MEDS: HALOPERIDOL 5 MG TABLET PO PRN ×2 (00:17→08:12)
[2021-05-18] MEDS: LORazepam 2 MG TABLET PO PRN ×2 (00:17→08:13)
[2021-05-18] MEDS: ZIPRASIDONE HCL 60 MG CAPSULE PO SCH ×2 (07:37→17:07)
[2021-05-18] MEDS: MULTIVITAMINS WITH MINERALS, THERAPEUTIC TABLET PO SCH (08:12)
[2021-05-18] MEDS: LevETIRAcetam 500 MG TABLET PO SCH ×2 (08:12→16:24)
[2021-05-18] MEDS: BusPIRone HCL 15 MG TABLET PO SCH ×2 (08:12→16:24)
[2021-05-18] MEDS: DIVALPROEX SODIUM 500 MG DR TABLET PO SCH ×2 (08:12→16:24)
[2021-05-18] MEDS: METOPROLOL SUCCINATE 25 MG ER TABLET PO SCH ×2 (08:13→16:24)
[2021-05-18] MEDS: HYDROCHLOROTHIAZIDE 25 MG TABLET PO SCH (08:13)
[2021-05-18] MEDS: LISINOPRIL 20 MG TABLET PO SCH (08:15)
[2021-05-18] MEDS: ZOLPIDEM TARTRATE 10 MG TABLET PO PRN (21:54)
[2021-05-18] MEDS: OLANZapine 10 MG TABLET PO SCH (21:54)
[2021-05-19] MEDS: LORazepam 2 MG TABLET PO PRN ×2 (01:31→07:48)
[2021-05-19] MEDS: HALOPERIDOL 5 MG TABLET PO PRN ×2 (01:31→10:27)
[2021-05-19] MEDS: ZIPRASIDONE HCL 60 MG CAPSULE PO SCH ×2 (06:53→17:04)
[2021-05-19] MEDS: LevETIRAcetam 500 MG TABLET PO SCH ×2 (07:46→17:04)
[2021-05-19] MEDS: METOPROLOL SUCCINATE 25 MG ER TABLET PO SCH ×2 (07:46→17:04)
[2021-05-19] MEDS: LISINOPRIL 20 MG TABLET PO SCH (07:46)
[2021-05-19] MEDS: MULTIVITAMINS WITH MINERALS, THERAPEUTIC TABLET PO SCH (07:46)
[2021-05-19] MEDS: HYDROCHLOROTHIAZIDE 25 MG TABLET PO SCH (07:46)
[2021-05-19] MEDS: BusPIRone HCL 15 MG TABLET PO SCH ×2 (07:46→17:04)
[2021-05-19] MEDS: DIVALPROEX SODIUM 500 MG DR TABLET PO SCH ×2 (07:46→17:04)
[2021-05-19 08:04] VITALS: BP 127/69
[2021-05-19 12:55] LABS: COVID AG,FIA SOURCE NASOPHARYNGEAL
[2021-05-19] MEDS: OLANZapine 10 MG TABLET PO SCH (21:55)
[2021-05-20] MEDS: ZOLPIDEM TARTRATE 10 MG TABLET PO PRN ×2 (02:51→22:19)
[2021-05-20] MEDS: HALOPERIDOL 5 MG TABLET PO PRN ×4 (02:51→22:16)
[2021-05-20] MEDS: LORazepam 2 MG TABLET PO PRN ×3 (02:51→15:42)
[2021-05-20] MEDS: ZIPRASIDONE HCL 60 MG CAPSULE PO SCH ×2 (07:05→07:34)
[2021-05-20] MEDS: METOPROLOL SUCCINATE 25 MG ER TABLET PO SCH ×2 (07:33→16:45)
[2021-05-20] MEDS: LevETIRAcetam 500 MG TABLET PO SCH ×2 (07:34→16:45)
[2021-05-20] MEDS: BusPIRone HCL 15 MG TABLET PO SCH ×2 (07:34→16:44)
[2021-05-20] MEDS: LISINOPRIL 20 MG TABLET PO SCH (07:34)
[2021-05-20] MEDS: MULTIVITAMINS WITH MINERALS, THERAPEUTIC TABLET PO SCH (07:34)
[2021-05-20] MEDS: HYDROCHLOROTHIAZIDE 25 MG TABLET PO SCH (07:34)
[2021-05-20] MEDS: DIVALPROEX SODIUM 500 MG DR TABLET PO SCH ×2 (07:35→16:45)
[2021-05-20 08:01] VITALS: BP 137/91
[2021-05-20 16:03] VITALS: BP 118/74
[2021-05-20] MEDS: OLANZapine 10 MG TABLET PO SCH (22:16)
[2021-05-21] MEDS: HALOPERIDOL 5 MG TABLET PO PRN ×2 (04:04→15:40)
[2021-05-21] MEDS: LORazepam 2 MG TABLET PO PRN ×2 (04:04→15:40)
[2021-05-21] MEDS: ZIPRASIDONE HCL 60 MG CAPSULE PO SCH ×2 (06:49→18:45)
[2021-05-21] MEDS: BusPIRone HCL 15 MG TABLET PO SCH ×2 (07:39→16:18)
[2021-05-21] MEDS: DIVALPROEX SODIUM 500 MG DR TABLET PO SCH ×2 (10:09→16:18)
[2021-05-21] MEDS: METOPROLOL SUCCINATE 25 MG ER TABLET PO SCH ×2 (10:09→16:19)
[2021-05-21] MEDS: LevETIRAcetam 500 MG TABLET PO SCH ×2 (10:09→16:19)
[2021-05-21] MEDS: MULTIVITAMINS WITH MINERALS, THERAPEUTIC TABLET PO SCH (10:09)
[2021-05-21] MEDS: LISINOPRIL 20 MG TABLET PO SCH (10:10)
[2021-05-21] MEDS: HYDROCHLOROTHIAZIDE 25 MG TABLET PO SCH (10:10)
[2021-05-21 16:28] VITALS: BP 125/72
[2021-05-21] MEDS: OLANZapine 10 MG TABLET PO SCH (22:06)
[2021-05-21] MEDS: ZOLPIDEM TARTRATE 10 MG TABLET PO PRN (22:06)
[2021-05-22] MEDS: ZIPRASIDONE HCL 60 MG CAPSULE PO SCH (07:05)
[2021-05-22] MEDS: MULTIVITAMINS WITH MINERALS, THERAPEUTIC TABLET PO SCH (09:00)
[2021-05-22] MEDS: METOPROLOL SUCCINATE 25 MG ER TABLET PO SCH (09:00)
[2021-05-22 09:24] VITALS: BP 160/95
[2021-05-22] MEDS: HYDROCHLOROTHIAZIDE 25 MG TABLET PO SCH (09:25)
[2021-05-22] MEDS: LevETIRAcetam 500 MG TABLET PO SCH (09:25)
[2021-05-22] MEDS: BusPIRone HCL 15 MG TABLET PO SCH (09:25)
[2021-05-22] MEDS: LISINOPRIL 20 MG TABLET PO SCH (09:25)
[2021-05-22] MEDS: DIVALPROEX SODIUM 500 MG DR TABLET PO SCH (09:25)
[2021-05-22] MEDS ORDERED: DIVA-112 PO (13:29)
[2021-05-22] MEDS ORDERED: OLAN10TA74 PO (13:29)
[2021-05-22] MEDS ORDERED: METO25XL PO (13:29)
[2021-05-22] MEDS ORDERED: ZIPR60CA2 PO (13:29)
[2021-05-22] MEDS ORDERED: LEVE500T53 PO (13:29)
[2021-05-22] MEDS ORDERED: LISI-894 PO (13:29)
[2021-05-22] MEDS ORDERED: MULT-248 PO (13:29)
[2021-05-22] MEDS ORDERED: BUSP15 PO (13:29)
[2021-05-22] MEDS ORDERED: HYDR25TA2 PO (13:29)
== END 2021-05-22 13:20 | disposition left against medical advice (07) | DRG 750 ==
LOC: EMS 00:27 → 3EC 10:53
PROVIDERS: ADMIT Psychiatry & Neurology Child & Adolescent Psychiatry; ATTEND Psychiatry & Neurology Child & Adolescent Psychiatry
DX: F25.9 Schizoaffective disorder, unspecified (principal); Z59.0 Homelessness; D64.9 Anemia, unspecified; E87.6 Hypokalemia; Z20.822 Contact with and (suspected) exposure to COVID-19; F12.90 Cannabis use, unspecified, uncomplicated; F17.200 Nicotine dependence, unspecified, uncomplicated; I10 Essential (primary) hypertension; F41.9 Anxiety disorder, unspecified
CPT/HCPCS: 80053; 80061; 80164; 81001; 82962; 85025; 99291; G0480; J1200; J1630; J2060; J3230; J3486

== ENCOUNTER 2021-06-30 21:01 | Emergency (ER) | payer MEDICAID ==
[~2021-06-30 21:01] MED LIST changes: +DIVA-112 PO; +HYDR25TA2 PO; +LEVE500T53 PO; +LISI-894 PO; +METO25XL PO; +MULT-248 PO; +ZIPR60CA2 PO
== END 2021-06-30 23:08 | disposition left against medical advice (07) ==
LOC: EMS 21:04
DX: F41.9 Anxiety disorder, unspecified (principal); Z53.21 Procedure and treatment not carried out due to patient leaving prior to being seen by health care provider

== ENCOUNTER 2021-11-17 16:45 | Outpatient (CLI) | payer OTHER ==
[~2021-11-17 16:45] MED LIST changes: +LEVE500T20 PO; -LEVE500T53 PO
[2021-11-17 17:46] LABS: GLUCOMETER DEV NAME(LOC) POC.BV
[2021-11-17 20:10] VITALS: BP 120/74
[2021-11-17] MEDS ORDERED: OLANZapine 7.5 MG TABLET PO SCH (21:00)
[2021-11-17] MEDS: BusPIRone HCL 15 MG TABLET PO SCH (21:12)
[2021-11-17] MEDS: LevETIRAcetam 500 MG TABLET PO SCH (21:12)
[2021-11-18 08:55] VITALS: BP 106/64
[2021-11-18] MEDS: LevETIRAcetam 500 MG TABLET PO SCH ×2 (08:57→09:07)
[2021-11-18] MEDS: BusPIRone HCL 15 MG TABLET PO SCH (08:57)
[2021-11-18] MEDS: HYDROCHLOROTHIAZIDE 25 MG TABLET PO SCH ×2 (08:57→09:06)
[2021-11-18] MEDS: OLANZapine 5 MG TABLET PO SCH ×2 (08:57→09:00)
[2021-11-18] MEDS: SERTRALINE HCL 100 MG TABLET PO SCH ×2 (08:57→09:06)
== END 2021-11-18 09:30 | disposition home or self-care (01) ==
LOC: CSU 16:45
PROVIDERS: ATTEND Psychiatry & Neurology Psychiatry
DX: F99 Mental disorder, not otherwise specified (principal); F41.9 Anxiety disorder, unspecified
CPT/HCPCS: Z7610

== ENCOUNTER 2022-01-23 08:18 | Emergency (ER) | payer OTHER ==
[~2022-01-23] VITALS: Ht 172.7 cm; Wt 86.4 kg
[2022-01-23 08:20] VITALS: BP 171/125
[2022-01-23] MEDS ORDERED: SERT-162 PO (08:26)
[2022-01-23] MEDS ORDERED: SILVER SULFADIAZINE 1% 25 GM CREAM TP ONE (08:45)
[2022-01-23] MEDS ORDERED: SILV20CR11 TP (08:45)
== END 2022-01-23 09:07 | disposition home or self-care (01) ==
LOC: EMS 08:21
DX: T23.202A Burn of second degree of left hand, unspecified site, initial encounter (principal); F31.9 Bipolar disorder, unspecified; F20.9 Schizophrenia, unspecified; F41.9 Anxiety disorder, unspecified; I10 Essential (primary) hypertension; F15.90 Other stimulant use, unspecified, uncomplicated; F17.210 Nicotine dependence, cigarettes, uncomplicated; Z79.899 Other long term (current) drug therapy; X19.XXXA Contact with other heat and hot substances, initial encounter; Y93.89 Activity, other specified; Y92.89 Other specified places as the place of occurrence of the external cause; Y99.8 Other external cause status
CPT/HCPCS: 16020; 99283